=== PATIENT | female | born 1955 ===

== ENCOUNTER 2018-05-21 20:40 | Emergency (ER) | payer OTHER ==
[2018-05-21 20:54] VITALS: RESP 20
[2018-05-21] MEDS ORDERED: Sodium Chloride 0.9% 1,000 ML IV STA (21:56)
[2018-05-21 22:15] LABS: BASO % 0.3 % (0.0-2.0); EOS # 0.3 K/uL (0.0-0.7); EOS % 2.8 % (0.0-4.0); HEMOGLOBIN 14.6 g/dL (11.0-16.0); LYMPH # 1.1 K/uL (1.0-4.3); LYMPH % 11.3 % (20.0-40.0); MEAN CELL VOLUME 88.8 fL (81.0-99.0); MEAN CORPUSCULAR HEMOGLOBIN 28.8 pg (27.0-31.0); MEAN CORPUSCULAR HGB CONC 32.5 g/dL (33.0-37.0); MEAN PLATELET VOLUME 8.3 fL (7.2-11.7); MONO # 0.5 K/uL (0.0-0.8); MONO % 4.6 % (0.0-10.0); NEUT # 8.2 K/uL (1.8-7.0); NRBC % 0.1 % (0.0-2.0); RBC 5.06 Mil/uL (3.80-5.20); RED CELL DISTRIBUTION WIDTH 12.8 % (11.5-14.5); WHITE BLOOD COUNT 10.1 K/uL (4.8-10.8)
--- NOTE | 2018-05-21 22:20 | C.PDOC ---
History Of Present Illness 63 y/o F c no PMHx p/w headache, vertigo, nausea, vomiting x 1-2 weeks. States headache and vertigo are worse with head movement and associated with vomiting. She reports room spinning sensation. She also reports a tremulous/stiff feeling in her arms and legs. Denies fever, chills, chest pain, dyspnea, dysuria, diarrhea. Time Seen by Provider: 05/21/18 21:19 Chief Complaint (Nursing): Dizziness/Lightheaded History Per: Patient History/Exam Limitations: no limitations Onset/Duration Of Symptoms: Days Current Symptoms Are (Timing): Still Present Recent travel outside of the [place]: No Additional History Per: Patient Past Medical History Reviewed: Historical Data, Nursing Documentation, Vital Signs Vital Signs: Last Vital Signs Temp 97.4 F L 05/21/18 20:50 Pulse 80 05/21/18 20:50 Resp 20 05/21/18 20:50 BP 142/89 05/21/18 20:50 Pulse Ox 97 05/21/18 20:50 - Medical History PMH: No Chronic Diseases Surgical History: No Surg Hx Family History: States: Unknown Family Hx - Social History Hx Alcohol Use: No Hx Substance Use: No - Immunization History Hx Tetanus Toxoid Vaccination: No Hx Influenza Vaccination: Yes Hx Pneumococcal Vaccination: No Review Of Systems Except As Marked, All Systems Reviewed And Found Negative. Constitutional: Negative for: Fever Cardiovascular: Negative for: Chest Pain Physical Exam - Physical Exam Additional Physical Exam Comments: Constitutional: No acute distress. Head: Normocephalic. Atraumatic. Eyes: PERRL. ENT: Moist mucous membranes. Neck: Supple. Cardiovascular: Regular rate. Radial pulse 2+ bilaterally. Chest: No tenderness. Respiratory: Clear to auscultation bilaterally. GI: Soft. Nontender. Nondistended. Back: No CVA tenderness. Musculoskeletal: No tenderness or swelling of extremities. Skin: No rash. Neurologic: Alert, no focal deficit. ED Course And Treatment - Laboratory Results Result Diagrams: 05/21/18 21:59 05/21/18 21:59 O2 Sat by Pulse Oximetry: 97 (ON RA) Pulse Ox Interpretation: Normal Medical Decision Making Medical Decision Making: Plan: * CT head * CXR * Antivert 50 mg PO * IV fluids CT head CLINICAL HISTORY: Headache. TECHNIQUE: Multiple axial CT images were obtained through the brain without IV contrast material. COMMENTS: There is normal configuration of sella turcica. There are no intra or extra- axial collections. There is no mass effect or midline shift. There is no evidence of hematoma formation. No hydrocephalus is present. The ventricles are symmetrical. No abnormal calcifications are present. There is diffuse age-appropriate cerebellar and cerebral atrophy with proportionally dilated ventricles and cortical sulci. There are bilateral periventricular and subcortical white matter hypolucencies compatible with mild chronic microvascular disease. Otherwise, no significant focal abnormalities are seen either in the posterior fossa or supratentorial compartment. IMPRESSION: 1. Age-appropriate cerebellar and cerebral atrophy. 2. Mild chronic microvascular disease. 3. No evidence of acute intracranial pathology. Thank you for your kind referral of this patient. Electronically signed on May 21, 2018 10:19:23 PM EST by: Josh Douglas M.D., MBA Certified By [facility] [facility] Trained MRI and CT Specialist - Patient feels better after treatment. Will discharge, f/u ENT, return to ED for worsening pain, fever, vomiting, dizziness, or any other problem. Disposition - Disposition Referrals: Noe Loredo MD [Staff Provider] - Disposition: HOME/ ROUTINE Disposition Time: 00:56 Condition: STABLE Prescriptions: Acetaminophen [Tylenol 325mg tab] 2 tab PO Q4H #30 tab DiphenhydrAMINE [Benadryl] 2 cap PO Q8 #25 cap Ibuprofen [Motrin] 1 tab PO Q6 #30 tab Meclizine [Antivert] 25 mg PO TID PRN #20 tab PRN Reason: Dizziness Ondansetron ODT [Zofran ODT] 4 mg PO Q8 #12 odt Instructions: Vertigo (a Type of Dizziness) Forms: [employer] ([place]) - Clinical Impression Clinical Impression: Vertigo - Scribe Statement The provider has reviewed the documentation as recorded by the Scribe Gabriel Doe All medical record entries made by the Scribe were at my direction and personally dictated by me. I have reviewed the chart and agree that the record accurately reflects my personal performance of the history, physical exam, medical decision making, and the department course for this patient. I have also personally directed, reviewed, and agree with the discharge instructions and disposition.
[2018-05-21 22:24] LABS: ALB/GLOB RATIO 1.5 (1.0-2.1); ALBUMIN 4.6 g/dL (3.5-5.0); ALT/SGPT 184 U/L (9-52); AST/SGOT 180 U/L (14-36); BLOOD UREA NITROGEN 11 mg/dL (7-17); CALCIUM 9.1 mg/dl (8.6-10.4); GFR NON-AFRICAN AMERICAN > 60; LIPASE 70 U/L (23-300)
[2018-05-21] MEDS ORDERED: DiphenhydrAMINE 50 mg/ml Inj IVP STA (23:37)
[2018-05-22] MEDS ORDERED: DiphenhydrAMINE 50 mg/ml Inj ONE
[2018-05-22 01:22] VITALS: BP 128/78; PULSE 84; TEMP 98; O2SAT 98
--- NOTE | 2018-05-22 08:17 | CT ---
Date of service: 05/21/2018 PROCEDURE: CT HEAD WITHOUT CONTRAST. HISTORY: headache COMPARISON: None available. TECHNIQUE: Axial computed tomography images were obtained through the head/brain without intravenous contrast. Radiation dose: Total exam DLP = 1103.63 mGy-cm. This CT exam was performed using one or more of the following dose reduction techniques: Automated exposure control, adjustment of the mA and/or kV according to patient size, and/or use of iterative reconstruction technique. FINDINGS: HEMORRHAGE: No intracranial hemorrhage. BRAIN: No mass effect or edema. Mild volume loss is noted. VENTRICLES: Unremarkable. No hydrocephalus. CALVARIUM: Unremarkable. PARANASAL SINUSES: Mild mucosal thickening noted in the ethmoid sinuses. MASTOID AIR CELLS: Mastoid air cells show opacification noted bilaterally. OTHER FINDINGS: None. IMPRESSION: No evidence of acute intracranial hemorrhage mass effect or midline shift. Mild volume loss noted. Bilateral mastoid effusion more prominent on the right. Correlate clinically for mastoiditis. Preliminary report contains concordant findings was submitted by [facility] Rad[facility].
--- NOTE | 2018-05-22 13:52 | RAD ---
Date of service: 05/21/2018 HISTORY: vertigo COMPARISON: No prior. FINDINGS: LUNGS: No active pulmonary disease. PLEURA: No significant pleural effusion identified, no pneumothorax apparent. CARDIOVASCULAR: No aortic atherosclerotic calcification present. Normal cardiac size. No pulmonary vascular congestion. OSSEOUS STRUCTURES: No significant abnormalities. VISUALIZED UPPER ABDOMEN: Normal. OTHER FINDINGS: None. IMPRESSION: No active disease.
== END 2018-05-22 01:20 | disposition home or self-care (01) ==
LOC: C.ER 20:40
DX: R42 Dizziness and giddiness (principal)
CPT/HCPCS: 70450; 71045; 80053; 82550; 83690; 83735; 84100; 85025; 96374; 96375; 99285; J1200; J1885; J2765; J7030